=== PATIENT | male | born 1985 | race Hispanic/Latino ===

== ENCOUNTER 2016-04-26 14:15 | Emergency (ER) | payer SELFPAY ==
[2016-04-26 15:02] VITALS: BP 127/85
== END 2016-04-26 22:32 | disposition left against medical advice (07) ==
LOC: ED 14:15
DX: Z20.2 Contact with and (suspected) exposure to infections with a predominantly sexual mode of transmission (principal); Z53.21 Procedure and treatment not carried out due to patient leaving prior to being seen by health care provider

== ENCOUNTER 2021-01-02 13:24 | Emergency (ER) | payer SELFPAY ==
[2021-01-02 14:10] VITALS: BP 122/69
--- NOTE | 2021-01-02 14:55 | Emergency Department Report ---
ED General Adult HPI - General Chief complaint: Urogenital-Male Stated complaint: PAIN IN TESTICLES, DIFFICULTY URINATING Time Seen by Provider: 01/02/21 14:06 Source: patient Mode of arrival: Ambulatory Limitations: No Limitations - History of Present Illness Initial comments: 35-year-old male patient presents to the ED with complaints of dysuria x1 week. Patient's significant other is also here and tested positive for chlamydia 3 months ago and did not receive treatment. He denies any past medical history, joint pain/swelling, throat pain, or fever/chills/sweats. He states he is otherwise feeling well. No testicular/penile pain/swelling per patient -: Sudden - Related Data Previous Rx's Medication Instructions Recorded Last Taken Type Permethrin 5% [Acticin 5% CREAM] 1 applicatio TP ONCE #1 tube 11/22/15 Unknown Rx Allergies Allergy/AdvReac Type Severity Reaction Status Date / Time cefaclor [From Ceclor] Allergy Unknown Verified 04/26/16 15:03 ED Review of Systems ROS: Stated complaint: PAIN IN TESTICLES, DIFFICULTY URINATING Other details as noted in HPI Constitutional: denies: chills, fever Genitourinary: urgency, dysuria, frequency. denies: hematuria, testicular pain, testicular mass Musculoskeletal: denies: joint swelling, arthralgia Skin: denies: rash, lesions, change in color Hematological/Lymphatic: denies: swollen glands ED Past Medical Hx - Past Medical History Previous Medical History?: Yes Additional medical history: Gonorrhea - Surgical History Past Surgical History?: No Hx Appendectomy: Yes - Social History Smoking Status: Current Every Day Smoker - Medications Home Medications: Home Medications Medication Instructions Recorded Confirmed Last Taken Type Permethrin 5% [Acticin 5% CREAM] 1 applicatio TP ONCE #1 tube 11/22/15 Unknown Rx ED Physical Exam - General Limitations: No Limitations General appearance: alert, in no apparent distress - Head Head exam: Present: atraumatic, normocephalic - Eye Eye exam: Present: normal appearance - Neck Neck exam: Present: normal inspection - Respiratory Respiratory exam: Absent: respiratory distress - Cardiovascular Cardiovascular Exam: Present: regular rate - Neurological Exam Neurological exam: Present: alert, oriented X3 - Psychiatric Psychiatric exam: Present: normal affect, normal mood - Skin Skin exam: Present: warm, dry, intact, normal color. Absent: rash ED Course Vital Signs 01/02/21 01/02/21 13:31 14:09 Temperature 98 F 98.2 F Pulse Rate 95 H 69 Respiratory 16 14 Rate Blood Pressure 128/45 122/69 [Left] O2 Sat by Pulse 96 99 Oximetry ED Medical Decision Making - Medical Decision Making 35-year-old male patient presents to the ED with complaints of dysuria x1 week. Patient's significant other is also here and tested positive for chlamydia 3 months ago and did not receive treatment. He denies any past medical history, joint pain/swelling, throat pain, or fever/chills/sweats. He states he is otherwise feeling well. No testicular/penile pain/swelling per patient Patient has allergy to Ceclor. Will cover for gonorrhea with gentamicin and discharge patient home with a prescription for doxycycline. His vitals are within normal limits, he is well-appearing, he is stable for discharge home. Patient also informed to follow-up with the health department or his primary care doctor for further STI testing within 3 to 5 days. He is well-appearing and stable for discharge home. Strict return precautions discussed in detail with patient verbalizes understanding. Critical care attestation.: If time is entered above; I have spent that time in minutes in the direct care of this critically ill patient, excluding procedure time. ED Disposition Clinical Impression: Dysuria, STD exposure Disposition: 01 HOME / SELF CARE / HOMELESS Is pt being admited?: No Condition: Stable Instructions: Chlamydia, Male, Preventing Sexually Transmitted Infections, Adult Referrals: [facility] [Provider Group] - 3-5 Days
[2021-01-02] MEDS ORDERED: GENTAMICIN 40 MG/ML VIAL 2 ML IM ONE (15:04)
== END 2021-01-02 17:21 | disposition left against medical advice (07) ==
LOC: ED 13:24
DX: R30.0 Dysuria (principal); Z20.2 Contact with and (suspected) exposure to infections with a predominantly sexual mode of transmission; F17.200 Nicotine dependence, unspecified, uncomplicated
CPT/HCPCS: 96372; 99282; J1580